=== PATIENT | female | born 2000 | race Caucasian/White ===

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

== ENCOUNTER 2021-04-20 16:59 | Emergency (ER) | payer BC ==
[~2021-04-20] VITALS: Ht 170 cm; Wt 58.9 kg
--- NOTE | 2021-04-20 17:16 | ED Lower Extremity ---
General Chief Complaint: Lower Extremity Stated Complaint: L LEG SWOLLEN, COLD, NUMB Source: patient Exam Limitations: no limitations History of Present Illness Date Seen by Provider: Apr 20, 2021 Time Seen by Provider: 17:12 Initial Comments To ER with left lower extremity cold and numb sensation. She noticed this upon awakening at noon today. She notices this in her left foot. She has no history of this and does not recall any injury. She states that she did drink some alcohol last night and might have fallen and injured herself but she does not remember it and has no pain or bruising. She is on oral control. She does not smoke but she does vape marijuana daily. Onset: this afternoon Severity: moderate Pain/Injury Location: left leg Method of Injury: unknown Modifying Factors: Worse With Movement Allergies and Home Medications Allergies Coded Allergies: azithromycin (Verified Adverse Reaction, Mild, RASH, 09/15/11) cefuroxime axetil (Verified Adverse Reaction, Mild, VOMITING, 09/15/11) Uncoded Allergies: MANGOS (Adverse Reaction, Mild, RASH, 09/15/11) Patient Home Medication List Home Medication List Reviewed: Yes Prednisone (Prednisone) 20 Mg Tab, 40 MG PO DAILY Prescribed by: MALCOM ESCALONA on 04/20/21 1833 [Qvar Inhaler] , 2 PUFF IH BID, (Reported) Entered as Reported by: MASON STERN on 09/16/11 0124 Review of Systems Constitutional: see HPI EENTM: see HPI Respiratory: no symptoms reported Cardiovascular: no symptoms reported Genitourinary: no symptoms reported Musculoskeletal: no symptoms reported Skin: no symptoms reported Psychiatric/Neurological: No Symptoms Reported Past Mtnumsy-Rwsife-Gpehxf Hx Past Medical History Surgeries: Yes (TONSILECTOMY) Appendectomy, Bladder Surgery Respiratory: Yes Cardiac: No Neurological: No Reproductive Disorders: No Genitourinary: No Gastrointestinal: No Musculoskeletal: No Endocrine: No Cancer: No Psychosocial: Yes Anxiety, Depression Blood Disorders: No Physical Exam Vital Signs Vital Signs - First Documented 04/20/21 17:09 Temp 36.3 Pulse 102 Resp 16 B/P (MAP) 158/69 (98) Pulse Ox 97 O2 Delivery Room Air Capillary Refill : Height, Weight, BMI Height: '" Weight: lbs. oz. kg; 20.00 BMI Method:Stated General Appearance: WD/WN, no apparent distress Neck: non-tender, full range of motion Respiratory: no respiratory distress, no accessory muscle use Hips: bilateral hip non-tender, bilateral hip normal inspection, bilateral hip normal range of motion Legs: bilateral leg non-tender, bilateral leg normal inspection, bilateral leg normal range of motion Knees: bilateral knee non-tender, bilateral knee normal inspection, bilateral knee normal range of motion Ankles: bilateral ankle normal inspection, bilateral ankle normal range of motion Feet: bilateral foot normal inspection, bilateral foot normal range of motion Neurologic/Psychiatric: alert, normal mood/affect, oriented x 3 Skin: normal color, warm/dry 1715-her pain is minimal. There is a notable temperature difference upon palpation of lower extremities that starts at the knee and extends distally. The legs are normal in appearance without either 1 appearing swollen. There is no ecchymoses or erythema or evidence of injury. She states that her only pain is left foot. She does report reduced motor function of the left lower extremity. She does have dopplerable blood flow in the dorsalis pedis and posterior tibial arteries. Progress/Results/Core Measures Results/Orders Lab Results Laboratory Tests Test 04/20/21 17:12 Range/Units White Blood Count 6.0 4.3-11.0 10^3/uL Red Blood Count 4.63 3.80-5.11 10^6/uL Hemoglobin 13.4 11.5-16.0 g/dL Hematocrit 41 35-52 % Mean Corpuscular Volume 88 80-99 fL Mean Corpuscular Hemoglobin 29 25-34 pg Mean Corpuscular Hemoglobin Concent 33 32-36 g/dL Red Cell Distribution Width 13.6 10.0-14.5 % Platelet Count 272 130-400 10^3/uL Mean Platelet Volume 12.5 H 9.0-12.2 fL Immature Granulocyte % (Auto) 0 % Neutrophils (%) (Auto) 59 42-75 % Lymphocytes (%) (Auto) 32 12-44 % Monocytes (%) (Auto) 7 0-12 % Eosinophils (%) (Auto) 1 0-10 % Basophils (%) (Auto) 1 0-10 % Neutrophils # (Auto) 3.6 1.8-7.8 10^3/uL Lymphocytes # (Auto) 1.9 1.0-4.0 10^3/uL Monocytes # (Auto) 0.4 0.0-1.0 10^3/uL Eosinophils # (Auto) 0.1 0.0-0.3 10^3/uL Basophils # (Auto) 0.0 0.0-0.1 10^3/uL Immature Granulocyte # (Auto) 0.0 0.0-0.1 10^3/uL Prothrombin Time 13.9 12.2-14.7 SEC INR Comment 1.0 0.8-1.4 Activated Partial Thromboplast Time 30 24-35 SEC D-Dimer 1.16 H 0.00-0.49 UG/ML Sodium Level 136 135-145 MMOL/L Potassium Level 4.2 3.6-5.0 MMOL/L Chloride Level 103 98-107 MMOL/L Carbon Dioxide Level 24 21-32 MMOL/L Anion Gap 9 5-14 MMOL/L Blood Urea Nitrogen 8 7-18 MG/DL Creatinine 1.24 0.60-1.30 MG/DL Estimat Glomerular Filtration Rate 63 BUN/Creatinine Ratio 6 Glucose Level 97 70-105 MG/DL Calcium Level 9.0 8.5-10.1 MG/DL Serum Test, Qualitative NEGATIVE NEGATIVE My Orders Orders - MALCOM ESCALONA APRN Us Venous Lower Ext Lt (04/20/21 17:03) Us Left Low Ext Arterial 24005 (04/20/21 17:03) Cbc With Automated Diff (04/20/21 17:05) Hcg,Qualitative Serum (04/20/21 17:05) Basic Metabolic Panel (04/20/21 17:05) Protime With Inr (04/20/21 17:16) Partial Thromboplastin Time (04/20/21 17:16) Fibrin Degradation Products (04/20/21 17:16) Vital Signs/I&O 04/20/21 17:09 Temp 36.3 Pulse 102 Resp 16 B/P (MAP) 158/69 (98) Pulse Ox 97 O2 Delivery Room Air Diagnostic Imaging Diagonstic Imaging: Ultrasound Comments NAME: JER RANDALL MED REC#: [id number] PT STATUS: REG ER : 2000 PHYSICIAN: MALCOM ESCALONA APRN ADMIT DATE: 04/20/21/ER Draft Date of Exam:04/20/21 US VENOUS LOWER EXT LT EXAM: US venous lower ext lt INDICATION: Swelling, cold, numb left lower extremity. COMPARISON: None. TECHNIQUE: Duplex, friedman-scale and color-flow imaging of the left lower extremity venous system was performed FINDINGS: The left common femoral vein, superficial femoral vein, profunda femoris and popliteal veins are normal. These vessels show normal compressibility, color flow and Doppler augmentation. The deep calf veins demonstrate no distinct intraluminal thrombus where seen. IMPRESSION: No evidence of deep venous thrombosis in the left lower extremity. Dictated on workstation # [id number] Dict: 04/20/211822 Trans: 04/20/211824 [facility] [phone] Interpreted by: REGINA LONG MD Electronically signed by: NAME: JER RANDALL [facility] REC#: [id number] PT STATUS: REG ER : 2000 PHYSICIAN: MALCOM ESCALONA APRN ADMIT DATE: 04/20/21/ER Draft Date of Exam:04/20/21 US LEFT LOW EXT ARTERIAL [id number] EXAM: US left low ext arterial [id number] INDICATION: Swelling, cold and numb left lower extremity. COMPARISON: None. FINDINGS: Normal peak systolic velocities and triphasic waveforms throughout the left lower extremity arteries. No arterial occlusion. No high-grade stenosis. IMPRESSION: Normal left lower extremity arterial Doppler. No stenosis or occlusion. Dictated on workstation # [id number] Dict: 04/20/211823 Trans: 04/20/211825 [facility] [phone] Interpreted by: REGINA LONG MD Electronically signed by: Departure Communication (Admissions) 1824-Ultrasound of the venous and arterial structures are patent with good triphasic flow in the arteries. I suspect this is a common peroneal nerve palsy. She states that she drank alcohol last night and awakened at noon with these symptoms. Would suspect a common peroneal nerve palsy from inadvertent compression overnight from sleepint position. She has the most pronounced loss of sensation starting at the proximal third of the tibia laterally and symptoms become increasingly pronounced more distally. She is able to dorsiflex and plantar flex the great toe and the foot though she has significantly reduced strength in doing so against resistance she has normal deep tendon reflexes at the patella bilaterally.. Impression Primary Impression: Left peroneal nerve palsy Disposition: HOME, SELF-CARE Condition: Stable Departure-Patient Inst. Decision time for Depature: 18:30 Referrals: UNIQUE CAMERON MD (PCP/Family) Primary Care Physician KALEY WARREN MD Patient Instructions: NO INSTRUCTIONS GIVEN Add. Discharge Instructions: 1. Call Dr. Warren from orthopedics on Friday morning to make an appointment to be seen next week. Take the steroids as directed. Return to ER for any concerns. All discharge instructions reviewed with patient and/or family. Voiced understanding. Scripts Prednisone (Prednisone) 20 Mg Tab 40 MG PO DAILY, #8 TAB 0 Refills Prov: MALCOM ESCALONA APRN 04/20/21 Copy Copies To 1: UNIQUE CAMERON MD; KALEY WARREN MD, PETER J APRN Apr 20, 2021 17:16
[2021-04-20 17:19] LABS: BASOPHILS % (AUTO) 1 % (0-10); EOSINOPHILS # (AUTO) 0.1 10^3/uL (0.0-0.3); EOSINOPHILS % (AUTO) 1 % (0-10); HEMATOCRIT 41 % (35-52); HEMOGLOBIN 13.4 g/dL (11.5-16.0); LYMPHOCYTES # (AUTO) 1.9 10^3/uL (1.0-4.0); LYMPHOCYTES % (AUTO) 32 % (12-44); MEAN CORPUSCULAR HEMOGLOBIN 29 pg (25-34); MEAN CORPUSCULAR HGB CONC 33 g/dL (32-36); MEAN CORPUSCULAR VOLUME 88 fL (80-99); MEAN PLATELET VOLUME 12.5 fL (9.0-12.2); MONOCYTES # (AUTO) 0.4 10^3/uL (0.0-1.0); MONOCYTES % (AUTO) 7 % (0-12); NEUTROPHILS # (AUTO) 3.6 10^3/uL (1.8-7.8); NEUTROPHILS % (AUTO) 59 % (42-75); PLATELET COUNT 272 10^3/uL (130-400)
[2021-04-20 17:32] LABS: POTASSIUM 4.2 MMOL/L (3.6-5.0)
[2021-04-20 17:34] LABS: FIBRIN DEGRADATION PRODUCTS 1.16 UG/ML (0.00-0.49); PROTHROMBIN TIME PATIENT 13.9 SEC (12.2-14.7)
[2021-04-20 17:38] LABS: CREATININE SERUM 1.24 MG/DL (0.60-1.30)
--- NOTE | 2021-04-20 18:25 | Diagnostic Imaging Report ---
EXAM: US venous lower ext lt INDICATION: Swelling, cold, numb left lower extremity. COMPARISON: None. TECHNIQUE: Duplex, friedman-scale and color-flow imaging of the left lower extremity venous system was performed FINDINGS: The left common femoral vein, superficial femoral vein, profunda femoris and popliteal veins are normal. These vessels show normal compressibility, color flow and Doppler augmentation. The deep calf veins demonstrate no distinct intraluminal thrombus where seen. IMPRESSION: No evidence of deep venous thrombosis in the left lower extremity. Dictated by: Dictated on workstation # [id number]
--- NOTE | 2021-04-20 18:26 | Diagnostic Imaging Report ---
EXAM: US left low ext arterial [id number] INDICATION: Swelling, cold and numb left lower extremity. COMPARISON: None. FINDINGS: Normal peak systolic velocities and triphasic waveforms throughout the left lower extremity arteries. No arterial occlusion. No high-grade stenosis. IMPRESSION: Normal left lower extremity arterial Doppler. No stenosis or occlusion. Dictated by: Dictated on workstation # [id number]
[2021-04-20] MEDS ORDERED: PRD20T PO (18:33)
[2021-04-20 19:09] VITALS: BP 135/94
== END 2021-04-20 19:09 ==
LOC: EDUNIT# 16:59 → ER 17:03
DX: G57.32 Lesion of lateral popliteal nerve, left lower limb (principal)
CPT/HCPCS: 36415; 80048; 84703; 85025; 85379; 85610; 85730; 93926

== ENCOUNTER 2021-06-15 19:03 | Emergency (ER) | payer BC ==
[~2021-06-15] VITALS: Ht 170 cm; Wt 135.0 kg
[~2021-06-15 19:03] MED LIST changes: +PRD20T PO
[2021-06-15 19:15] VITALS: BP 160/108
[2021-06-15] MEDS ORDERED: ONDANSETRON 4 MG/2 ML (SDV) Z0FRAN IVP ONE (19:30)
[2021-06-15] MEDS ORDERED: PROMETHAZINE INJ 25 MG/ML (PHENERGAN) AMP IVP ONE (19:30)
[2021-06-15] MEDS ORDERED: NS IV 1000 ML 1,000 ML IV SCH (19:30)
--- NOTE | 2021-06-15 19:30 | ED GI ---
General Chief Complaint: Abdominal/GI Problems Stated Complaint: POSS ALCOHOL POISONING Nursing Triage Note: PT ARRIVES PER POV W/ C/O NAUSEA AND VOMITING AFTER DRINKING HEAVILY LAST NIGHT. AMBULATORY TO ROOM, VS OBTAINED AND RN NEUROSURGICAL TO ROOM. Source of Information: Patient Exam Limitations: No Limitations (MALCOM ESCALONA APRN) History of Present Illness Date Seen by Provider: Jun 15, 2021 Time Seen by Provider: 19:28 Initial Comments to ER by private vehicle accompanied by boyfriend with reports of nausea and vomiting after drinking heavily last night. She has been unable to take anything p.o. Only 1 episode of diarrhea at home. No fevers chills. Timing/Duration: 12-24 Hours Severity/Quality: Moderate Location: Generalized Abdomen Radiation: No Radiation Activities at Onset: None Associated Symptoms: Nausea/Vomiting (MALCOM ESCALONA APRN) Allergies and Home Medications Allergies Coded Allergies: azithromycin (Verified Adverse Reaction, Mild, RASH, 09/15/11) cefuroxime axetil (Verified Adverse Reaction, Mild, VOMITING, 09/15/11) Uncoded Allergies: MANGOS (Adverse Reaction, Mild, RASH, 09/15/11) Patient Home Medication List Home Medication List Reviewed: Yes (MALCOM ESCALONA APRN) Prednisone (Prednisone) 20 Mg Tab, 40 MG PO DAILY Prescribed by: MALCOM ESCALONA on 04/20/21 1833 [Qvar Inhaler] , 2 PUFF IH BID, (Reported) Entered as Reported by: MASON STERN on 09/16/11 0124 Review of Systems Review of Systems Constitutional: see HPI EENTM: No Symptoms Reported Respiratory: No Symptoms Reported Cardiovascular: No Symptoms Reported Gastrointestinal: See HPI, Abdominal Pain, Nausea, Vomiting Genitourinary: No Symptoms Reported Musculoskeletal: no symptoms reported Skin: no symptoms reported Psychiatric/Neurological: No Symptoms Reported Endocrine: No Symptoms Reported (MALCOM ESCALONA APRN) Past Zhekyhn-Mzlqha-Byeubk Hx Past Medical History Surgeries: Yes (TONSILECTOMY) Appendectomy, Bladder Surgery Respiratory: Yes Cardiac: No Neurological: No Reproductive Disorders: No Genitourinary: No Gastrointestinal: No Musculoskeletal: No Endocrine: No Cancer: No Psychosocial: Yes Anxiety, Depression Blood Disorders: No (MALCOM ESCALONA APRN) Physical Exam Vital Signs Vital Signs - First Documented 06/15/21 19:15 Temp 36.0 Pulse 84 Resp 24 B/P (MAP) 160/108 (125) Pulse Ox 96 (MI,MASOUD K DO) Vital Signs Capillary Refill : Less Than 3 Seconds (MALCOM ESCALONA APRN) Height/Weight/BMI Height: '" Weight: lbs. oz. kg; 46.00 BMI Method:Stated General Appearance: WD/WN, no apparent distress, other (Tachypnea, appears to feel unwell.) HEENT: PERRL/EOMI, normal ENT inspection Neck: non-tender, full range of motion Respiratory: no respiratory distress, no accessory muscle use Cardiovascular: no murmur, tachycardia Gastrointestinal: normal bowel sounds, soft, tenderness (Epigastric) Extremities: normal range of motion, non-tender, other (Full range of motion all extremities) Neurologic/Psychiatric: alert, normal mood/affect, oriented x 3 Skin: normal color, warm/dry (MALCOM ESCAOLNA APRN) Progress/Results/Core Measures Results/Orders Lab Results Laboratory Tests Test 06/15/21 19:20 06/15/21 20:15 06/15/21 20:30 Range/Units White Blood Count 15.6 H 4.3-11.0 10^3/uL Red Blood Count 4.96 3.80-5.11 10^6/uL Hemoglobin 14.6 11.5-16.0 g/dL Hematocrit 43 35-52 % Mean Corpuscular Volume 87 80-99 fL Mean Corpuscular Hemoglobin 29 25-34 pg Mean Corpuscular Hemoglobin Concent 34 32-36 g/dL Red Cell Distribution Width 12.8 10.0-14.5 % Platelet Count 263 130-400 10^3/uL Mean Platelet Volume 12.6 H 9.0-12.2 fL Immature Granulocyte % (Auto) 0 % Neutrophils (%) (Auto) 93 H 42-75 % Lymphocytes (%) (Auto) 4 L 12-44 % Monocytes (%) (Auto) 3 0-12 % Eosinophils (%) (Auto) 0 0-10 % Basophils (%) (Auto) 0 0-10 % Neutrophils # (Auto) 14.4 H 1.8-7.8 10^3/uL Lymphocytes # (Auto) 0.6 L 1.0-4.0 10^3/uL Monocytes # (Auto) 0.5 0.0-1.0 10^3/uL Eosinophils # (Auto) 0.0 0.0-0.3 10^3/uL Basophils # (Auto) 0.0 0.0-0.1 10^3/uL Immature Granulocyte # (Auto) 0.1 0.0-0.1 10^3/uL Neutrophils % (Manual) 93 % Lymphocytes % (Manual) 5 % Monocytes % (Manual) 1 % Band Neutrophils 1 % Blood Morphology Comment NORMAL Sodium Level 135 135-145 MMOL/L Potassium Level 4.2 3.6-5.0 MMOL/L Chloride Level 103 98-107 MMOL/L Carbon Dioxide Level 13 L 21-32 MMOL/L Anion Gap 19 H 5-14 MMOL/L Blood Urea Nitrogen 13 7-18 MG/DL Creatinine 1.01 0.60-1.30 MG/DL Estimat Glomerular Filtration Rate 81 BUN/Creatinine Ratio 13 Glucose Level 178 H 70-105 MG/DL Calcium Level 10.2 H 8.5-10.1 MG/DL Corrected Calcium 8.5-10.1 MG/DL Total Bilirubin 0.6 0.1-1.0 MG/DL Aspartate Amino Transf (AST/SGOT) 24 5-34 U/L Alanine Aminotransferase (ALT/SGPT) 25 0-55 U/L Alkaline Phosphatase 50 40-136 U/L Total Protein 8.0 6.4-8.2 GM/DL Albumin 4.7 H 3.2-4.5 GM/DL Lipase 11 8-78 U/L Serum Alcohol < 10 <10 MG/DL Urine Color YELLOW Urine Clarity CLEAR Urine pH 6.0 5-9 Urine Specific [place] >=1.030 1.016-1.022 Urine Protein 2+ H NEGATIVE Urine Glucose (UA) 3+ H NEGATIVE Urine Ketones 1+ H NEGATIVE Urine Nitrite NEGATIVE NEGATIVE Urine Bilirubin NEGATIVE NEGATIVE Urine Urobilinogen 0.2 < = 1.0 MG/DL Urine Leukocyte Esterase NEGATIVE NEGATIVE Urine RBC (Auto) 3+ H NEGATIVE Urine RBC 2-5 H /HPF Urine WBC 0-2 /HPF Urine Squamous Epithelial Cells 2-5 /HPF Urine Crystals NONE /LPF Urine Bacteria FEW H /HPF Urine Casts NONE /LPF Urine Mucus NEGATIVE /LPF Urine Culture Indicated YES Blood Gas Puncture Site UNKNOWN Blood Gas Patient Temperature 36 Arterial Blood pH 7.35 L 7.37-7.43 Arterial Blood Partial Pressure CO2 28 L 35-45 MMHG Arterial Blood Partial Pressure O2 86 79-93 MMHG Arterial Blood HCO3 15 *L 23-27 MMOL/L Arterial Blood Total CO2 16.0 L 21.0-31.0 MMOL/L Arterial Blood Oxygen Saturation 96 94-100 % Arterial Blood Base Excess -9.6 L -2.5-2.5 MMOL/L Kerwin Test UNKNOWN Blood Gas Ventilator Setting NO Blood Gas Inspired Oxygen UNKNOWN (MASOUD STARK DO) Medications Given in ED Current Medications Medications Dose Ordered Sig/Xu Route Start Time Stop Time Status Last Admin Dose Admin Ondansetron HCl 8 mg ONCE ONCE IVP 06/15/21 19:30 06/15/21 19:31 DC 06/15/21 19:37 8 MG Promethazine HCl 25 mg ONCE ONCE IVP 06/15/21 19:30 06/15/21 19:31 DC 06/15/21 19:37 25 MG (JAY STARKA Ta GONZALEZ) Vital Signs/I&O 06/15/21 19:15 Temp 36.0 Pulse 84 Resp 24 B/P (MAP) 160/108 (125) Pulse Ox 96 (JAY STARKA Ta GONZALEZ) Blood Pressure Mean: 125 Departure Communication (Admissions) 2055-In regards to the left peroneal nerve palsy that I saw a few months ago she has full dorsiflexion and plantar flexion. She has had some pain but has complete functionality of the foot. Regards to her nausea, she states that she took a nap and now she woke up and "feels great". She is alert talkative pleasant and in no distress. I will give her a p.o. challenge and as long as she can tolerate this we will discharge to home. (MALCOM ESCALONA APRN) Impression Primary Impression: Nausea & vomiting Disposition: 01 HOME, SELF-CARE Condition: Stable Departure-Patient Inst. Decision time for Depature: 20:57 (MALCOM ESCALONA APRN) Referrals: UNIQUE CAMERON MD (PCP/Family) Primary Care Physician Patient Instructions: Nausea and Vomiting, Adult (DC) Add. Discharge Instructions: 1. Return to ER for any concerns. Use the nausea medication as directed. All discharge instructions reviewed with patient and/or family. Voiced understanding. ATTENDING PHYSICIAN NOTE: I WAS PHYSICALLY PRESENT ER PHYSICIAN, BUT I WAS NOT INVOLVED IN ANY DECISION MAKING OR ANY CARE OF THIS PATIENT. (MASOUD STARK DO) MALCOM ESCALONA INSTRUMENT LENS INSPECTOR Jun 15, 2021 19:30 MASOUD STARK DO Jun 15, 2021 21:33
[2021-06-15 19:31] LABS: BASOPHILS % (AUTO) 0 % (0-10); EOSINOPHILS % (AUTO) 0 % (0-10); HEMATOCRIT 43 % (35-52); HEMOGLOBIN 14.6 g/dL (11.5-16.0); LYMPHOCYTES # (AUTO) 0.6 10^3/uL (1.0-4.0); LYMPHOCYTES % (AUTO) 4 % (12-44); MEAN CORPUSCULAR HEMOGLOBIN 29 pg (25-34); MEAN CORPUSCULAR HGB CONC 34 g/dL (32-36); MEAN CORPUSCULAR VOLUME 87 fL (80-99); MEAN PLATELET VOLUME 12.6 fL (9.0-12.2); MONOCYTES # (AUTO) 0.5 10^3/uL (0.0-1.0); MONOCYTES % (AUTO) 3 % (0-12); NEUTROPHILS # (AUTO) 14.4 10^3/uL (1.8-7.8); NEUTROPHILS % (AUTO) 93 % (42-75); PLATELET COUNT 263 10^3/uL (130-400); WHITE BLOOD COUNT 15.6 10^3/uL (4.3-11.0)
[2021-06-15] MEDS ORDERED: ONDANSETRON 4 MG/2 ML (SDV) Z0FRAN ONE (19:35)
[2021-06-15 19:57] LABS: ALANINE AMINOTRANSFERASE 25 U/L (0-55); ALBUMIN 4.7 GM/DL (3.2-4.5); ALKALINE PHOSPHATASE 50 U/L (40-136); BILIRUBIN,TOTAL 0.6 MG/DL (0.1-1.0); BUN/CREATININE RATIO 13; CALCIUM 10.2 MG/DL (8.5-10.1); CARBON DIOXIDE 13 MMOL/L (21-32); CHLORIDE 103 MMOL/L (98-107); CREATININE SERUM 1.01 MG/DL (0.60-1.30); GFR ESTIMATED 81; GLUCOSE 178 MG/DL (70-105); LIPASE 11 U/L (8-78); POTASSIUM 4.2 MMOL/L (3.6-5.0); SODIUM 135 MMOL/L (135-145)
[2021-06-15 20:24] LABS: BILIRUBIN,URINE NEGATIVE (NEGATIVE); CLARITY,URINE CLEAR; COLOR,URINE YELLOW; GLUCOSE, URINE (UA) 3+ (NEGATIVE); KETONES,URINE 1+ (NEGATIVE); LEUKOCYTE ESTERASE ,URINE NEGATIVE (NEGATIVE); NITRITE,URINE NEGATIVE (NEGATIVE); PROTEIN,URINE 2+ (NEGATIVE)
[2021-06-15 20:34] LABS: ABG BASE EXCESS -9.6 MMOL/L (-2.5-2.5); ABG OXYGEN SATURATION 96 % (94-100); ABG PCO2 28 MMHG (35-45); ABG PH 7.35 (7.37-7.43); ABG PO2 86 MMHG (79-93)
[2021-06-15 20:36] LABS: PATIENT TEMP 36; VENTILATOR NO
[2021-06-15 20:38] LABS: BACTERIA,URINE FEW /HPF; WBC,URINE 0-2 /HPF
[2021-06-15 20:42] LABS: BAND NEUTROPHILS 1 %; LYMPHOCYTES % (MANUAL) 5 %; MONOCYTES % (MANUAL) 1 %; NEUTROPHILS % (MANUAL) 93 %; RBC MORPH NORMAL
[2021-06-15] MEDS ORDERED: RX-ONDANSETRON 4 MG ODT (ZOFRAN) PPK #4 PO STA (20:54)
[2021-06-15] MEDS ORDERED: LACTATED RINGERS 1,000 ML IV SCH (21:00)
== END 2021-06-15 21:12 | disposition home or self-care (01) ==
LOC: EDUNIT# 19:03 → ER 19:05
DX: R11.2 Nausea with vomiting, unspecified (principal); Z87.898 Personal history of other specified conditions
CPT/HCPCS: 80053; 81000; 82805; 83690; 85007; 85027; 87088; 99284; G0480; 36415; 80320

== ENCOUNTER 2021-12-20 16:02 | Emergency (ER) | payer BC ==
[~2021-12-20] VITALS: Ht 170 cm; Wt 56.0 kg
--- NOTE | 2021-12-20 16:19 | ED General ---
General Chief Complaint: General Problems/Pain Stated Complaint: VOMITING,ABD CRAMPS,FEVER,SOA Nursing Triage Note: ARRIVED VIA AMB TO ROOM 10 WITH COMPLAINTS, VOMITING, FEVER, SOA, COUGH, HANDS TINGLING STARTING YESTERDAY. STATES SHE WAS SEEN BY [facility] YESTERDAY WHO TOLD HER SHE HAD A STOMACH BUG. History of Present Illness Date Seen by Provider: Dec 20, 2021 Time Seen by Provider: 16:15 Initial Comments Patient comes to the emergency department for continued nausea, vomiting and fever that started yesterday. Was seen at [facility] yesterday and told that she had a stomach bug. Denies recent sick contacts that she is aware of. Denies exposure to COVID. Reports that she has been unable to keep much down and decreased urination. Timing/Duration: 1-2 Days Severity: Moderate Modifying Factors: improves with Rest Associated Systoms: No Chest Pain, No Cough, No Diaphoresis; Fever/Chills, Loss of Appetite, Malaise, Nausea/Vomiting, Shortness of Air; No Syncope, No Weakness Allergies and Home Medications Allergies Coded Allergies: azithromycin (Verified Adverse Reaction, Mild, RASH, 09/15/11) cefuroxime axetil (Verified Adverse Reaction, Mild, VOMITING, 09/15/11) Uncoded Allergies: MANGOS (Adverse Reaction, Mild, RASH, 09/15/11) Patient Home Medication List Home Medication List Reviewed: Yes Ondansetron (Ondansetron Odt) 4 Mg Tab.rapdis, 4 MG PO Q6H PRN for NAUSEA/VOMITING Prescribed by: Trina Mann on 12/20/21 1735 Prednisone (Prednisone) 20 Mg Tab, 40 MG PO DAILY Prescribed by: MALCOM ESCALONA on 04/20/21 1833 [Qvar Inhaler] , 2 PUFF IH BID, (Reported) Entered as Reported by: MASON STERN on 09/16/11 0124 Review of Systems Review of Systems Constitutional: No chills, No diaphoresis; dizziness, fever, malaise; No weakness EENTM: no symptoms reported Respiratory: No cough; short of breath; No stridor, No wheezing Cardiovascular: No chest pain, No palpitations Gastrointestinal: abdominal pain; No constipation; diarrhea, nausea, vomiting Genitourinary: No dysuria, No frequency Musculoskeletal: no symptoms reported Skin: no symptoms reported Psychiatric/Neurological: No Symptoms Reported All Other Systems Reviewed Negative Unless Noted: Yes Past Wfuvtmv-Fbugxi-Ivokpy Hx Patient Social History Substance use?: Yes Substance type: Marijuana Alcohol Use?: Yes Alcohol Frequency: Once in a while Past Medical History Surgeries: Yes (TONSILECTOMY) Appendectomy, Bladder Surgery Respiratory: Yes Cardiac: No Neurological: No Last Menstrual Period: Dec 10, 2021 Reproductive Disorders: No Genitourinary: No Gastrointestinal: No Musculoskeletal: No Endocrine: No Cancer: No Psychosocial: Yes Anxiety, Depression Blood Disorders: No Family Medical History Reviewed Nursing Family Hx Physical Exam Vital Signs Vital Signs - First Documented 12/20/21 16:10 Temp 36.4 Pulse 68 Resp 16 B/P (MAP) 153/96 (115) Pulse Ox 100 O2 Delivery Room Air Capillary Refill : Less Than 3 Seconds Height, Weight, BMI Height: '" Weight: lbs. oz. kg; 19.00 BMI Method:Stated General Appearance: No Apparent Distress, WD/WN Neck: Full Range of Motion, Normal Inspection, Non Tender, Supple Respiratory: Chest Non Tender, Lungs Clear, Normal Breath Sounds, No Accessory Muscle Use, No Respiratory Distress Cardiovascular: Regular Rate, Rhythm, No Edema Gastrointestinal: Normal Bowel Sounds, Tenderness (epigastric) Extremity: Normal Capillary Refill, Normal Inspection, Normal Range of Motion, Non Tender, No Calf Tenderness Neurologic/Psychiatric: Alert, Oriented x3, No Motor/Sensory Deficits Skin: Normal Color, Warm/Dry Progress/Results/Core Measures Suspected Sepsis SIRS Temperature: Pulse: 68 Respiratory Rate: 16 Laboratory Tests 12/20/21 16:20: White Blood Count 15.6H Blood Pressure 153 /96 Mean: 115 Laboratory Tests 12/20/21 16:20: Creatinine 1.24, Platelet Count 294, Total Bilirubin 1.0 Results/Orders Lab Results Laboratory Tests Test 12/20/21 16:20 Range/Units White Blood Count 15.6 H 4.3-11.0 10^3/uL Red Blood Count 4.95 3.80-5.11 10^6/uL Hemoglobin 14.5 11.5-16.0 g/dL Hematocrit 42 35-52 % Mean Corpuscular Volume 84 80-99 fL Mean Corpuscular Hemoglobin 29 25-34 pg Mean Corpuscular Hemoglobin Concent 35 32-36 g/dL Red Cell Distribution Width 12.3 10.0-14.5 % Platelet Count 294 130-400 10^3/uL Mean Platelet Volume 12.8 H 9.0-12.2 fL Immature Granulocyte % (Auto) 1 % Neutrophils (%) (Auto) 87 H 42-75 % Lymphocytes (%) (Auto) 7 L 12-44 % Monocytes (%) (Auto) 6 0-12 % Eosinophils (%) (Auto) 0 0-10 % Basophils (%) (Auto) 0 0-10 % Neutrophils # (Auto) 13.6 H 1.8-7.8 10^3/uL Lymphocytes # (Auto) 1.1 1.0-4.0 10^3/uL Monocytes # (Auto) 0.9 0.0-1.0 10^3/uL Eosinophils # (Auto) 0.0 0.0-0.3 10^3/uL Basophils # (Auto) 0.0 0.0-0.1 10^3/uL Immature Granulocyte # (Auto) 0.1 0.0-0.1 10^3/uL Neutrophils % (Manual) 92 % Lymphocytes % (Manual) 7 % Monocytes % (Manual) 1 % Eosinophils % (Manual) 0 % Basophils % (Manual) 0 % Band Neutrophils 0 % Blood Morphology Comment NORMAL Urine Color YELLOW Urine Clarity CLEAR Urine pH 6.0 5-9 Urine Specific [place] <=1.005 1.016-1.022 Urine Protein NEGATIVE NEGATIVE Urine Glucose (UA) NEGATIVE NEGATIVE Urine Ketones TRACE H NEGATIVE Urine Nitrite NEGATIVE NEGATIVE Urine Bilirubin NEGATIVE NEGATIVE Urine Urobilinogen 0.2 < = 1.0 MG/DL Urine Leukocyte Esterase NEGATIVE NEGATIVE Urine RBC (Auto) 1+ H NEGATIVE Urine RBC NONE /HPF Urine WBC NONE /HPF Urine Squamous Epithelial Cells 0-2 /HPF Urine Crystals NONE /LPF Urine Bacteria NEGATIVE /HPF Urine Casts NONE /LPF Urine Mucus NEGATIVE /LPF Urine Culture Indicated NO Urine Test NEGATIVE NEGATIVE Sodium Level 138 135-145 MMOL/L Potassium Level 3.3 L 3.6-5.0 MMOL/L Chloride Level 104 98-107 MMOL/L Carbon Dioxide Level 21 21-32 MMOL/L Anion Gap 13 5-14 MMOL/L Blood Urea Nitrogen 13 7-18 MG/DL Creatinine 1.24 0.60-1.30 MG/DL Estimat Glomerular Filtration Rate 63 BUN/Creatinine Ratio 10 Glucose Level 114 H 70-105 MG/DL Calcium Level 10.1 8.5-10.1 MG/DL Corrected Calcium 9.7 8.5-10.1 MG/DL Total Bilirubin 1.0 0.1-1.0 MG/DL Aspartate Amino Transf (AST/SGOT) 24 5-34 U/L Alanine Aminotransferase (ALT/SGPT) 12 0-55 U/L Alkaline Phosphatase 53 40-136 U/L Total Protein 7.9 6.4-8.2 GM/DL Albumin 4.5 3.2-4.5 GM/DL Lipase 11 8-78 U/L My Orders Orders - TRINA MANN APRN Cbc With Automated Diff (12/20/21 16:19) Comprehensive Metabolic Panel (12/20/21 16:19) Lipase (12/20/21 16:19) Ua Culture If Indicated (12/20/21 16:19) Ns Iv 1000 Ml (Sodium Chloride 0.9%) (12/20/21 16:30) Ondansetron Injection (Zofran Injectio (12/20/21 16:30) Chest 1 View, Ap/Pa Only (12/20/21 16:34) Hcg,Qualitative Urine (12/20/21 16:34) Manual Differential (12/20/21 16:20) Medications Given in ED Current Medications Medications Dose Ordered Sig/Xu Route Start Time Stop Time Status Last Admin Dose Admin Ondansetron HCl 4 mg ONCE ONCE IVP 12/20/21 16:30 12/20/21 16:31 DC 12/20/21 16:31 4 MG Vital Signs/I&O 12/20/21 16:10 Temp 36.4 Pulse 68 Resp 16 B/P (MAP) 153/96 (115) Pulse Ox 100 O2 Delivery Room Air Capillary Refill : Less Than 3 Seconds Blood Pressure Mean: 115 Progress Note : Progress Note WBC is slightly elevated. Likely secondary to vomiting. CXR was negative and electrolytes look good overall. Slightly low potassium. Discussed with patient labs in addition along with reasons to return to the ER. Diagnostic Imaging Diagonstic Imaging: Xray Plain Films/CT/US/NM/MRI: chest Comments NAME: JER RANDALL [facility] REC#: [id number] PT STATUS: REG ER : 2000 PHYSICIAN: TRINA MANN APRN ADMIT DATE: 12/20/21/ER Draft Date of Exam:12/20/21 CHEST 1 VIEW, AP/PA ONLY INDICATION: Shortness of breath. EXAMINATION: Frontal chest was obtained at 4:55 p.m. COMPARISON: 02/10/2013. Heart and mediastinal silhouette are normal in appearance. The lungs are clear. There is no pneumothorax or pleural fluid. IMPRESSION: Negative chest. Dictated on workstation # [id number] Dict: 12/20/211711 Trans: 12/20/211714 [facility] [id number] Interpreted by: TUCKER YEH MD Electronically signed by: Departure Impression Primary Impression: Gastroenteritis Disposition: 01 HOME, SELF-CARE Condition: Stable Departure-Patient Inst. Decision time for Depature: 17:34 Referrals: NO,LOCAL PHYSICIAN (PCP/Family) Primary Care Physician Patient Instructions: Viral Gastroenteritis in Adults Add. Discharge Instructions: 1. Home and rest. 2. Push fluids. 3. Alternate Tylenol/Ibuprofen as needed for pain. 4. May continue over the counter medications as directed per package instructions. 5. Follow up with PCP as needed. 6. [place] diet and advance as tolerated. 7. Zofran as needed for nausea. 8. Return here if worse or concerns. All discharge instructions reviewed with patient and/or family. Voiced understanding. Scripts Ondansetron (Ondansetron Odt) 4 Mg Tab.rapdis 4 MG PO Q6H PRN for NAUSEA/VOMITING, #8 TAB 0 Refills Prov: TIRNA MANN APRN 12/20/21 Work/School Note: Work Release Form Date Seen in the Emergency Department: Dec 20, 2021 Return to Work: Dec 24, 2021 Restrictions: No Restrictions TRINA MANN APRN Dec 20, 2021 16:19
[2021-12-20] MEDS ORDERED: ONDANSETRON 4 MG/2 ML (SDV) Z0FRAN IVP ONE (16:30)
[2021-12-20] MEDS ORDERED: NS IV 1000 ML 1,000 ML IV SCH (16:30)
[2021-12-20 16:33] LABS: BILIRUBIN,URINE NEGATIVE (NEGATIVE); CLARITY,URINE CLEAR; COLOR,URINE YELLOW; GLUCOSE, URINE (UA) NEGATIVE (NEGATIVE); KETONES,URINE TRACE (NEGATIVE); LEUKOCYTE ESTERASE ,URINE NEGATIVE (NEGATIVE); NITRITE,URINE NEGATIVE (NEGATIVE); PROTEIN,URINE NEGATIVE (NEGATIVE)
[2021-12-20 16:34] LABS: BASOPHILS % (AUTO) 0 % (0-10); EOSINOPHILS % (AUTO) 0 % (0-10); HEMATOCRIT 42 % (35-52); HEMOGLOBIN 14.5 g/dL (11.5-16.0); LYMPHOCYTES # (AUTO) 1.1 10^3/uL (1.0-4.0); LYMPHOCYTES % (AUTO) 7 % (12-44); MEAN CORPUSCULAR HEMOGLOBIN 29 pg (25-34); MEAN CORPUSCULAR HGB CONC 35 g/dL (32-36); MEAN CORPUSCULAR VOLUME 84 fL (80-99); MEAN PLATELET VOLUME 12.8 fL (9.0-12.2); MONOCYTES # (AUTO) 0.9 10^3/uL (0.0-1.0); MONOCYTES % (AUTO) 6 % (0-12); NEUTROPHILS # (AUTO) 13.6 10^3/uL (1.8-7.8); NEUTROPHILS % (AUTO) 87 % (42-75); PLATELET COUNT 294 10^3/uL (130-400); WHITE BLOOD COUNT 15.6 10^3/uL (4.3-11.0)
[2021-12-20 17:04] LABS: BACTERIA,URINE NEGATIVE /HPF; SQUAMOUS EPITHELIAL CELL,UR 0-2 /HPF
[2021-12-20 17:07] LABS: BAND NEUTROPHILS 0 %; BASOPHILS % (MANUAL) 0 %; EOSINOPHILS % (MANUAL) 0 %; LYMPHOCYTES % (MANUAL) 7 %; MONOCYTES % (MANUAL) 1 %; NEUTROPHILS % (MANUAL) 92 %; RBC MORPH NORMAL
[2021-12-20 17:14] LABS: ALBUMIN 4.5 GM/DL (3.2-4.5); POTASSIUM 3.3 MMOL/L (3.6-5.0)
[2021-12-20 17:15] LABS: CALCIUM 10.1 MG/DL (8.5-10.1)
--- NOTE | 2021-12-20 17:15 | Diagnostic Imaging Report ---
INDICATION: Shortness of breath. EXAMINATION: Frontal chest was obtained at 4:55 p.m. COMPARISON: 02/10/2013. Heart and mediastinal silhouette are normal in appearance. The lungs are clear. There is no pneumothorax or pleural fluid. IMPRESSION: Negative chest. Dictated by: Dictated on workstation # [id number]
[2021-12-20 17:17] LABS: TOTAL PROTEIN 7.9 GM/DL (6.4-8.2)
[2021-12-20 17:20] LABS: CREATININE SERUM 1.24 MG/DL (0.60-1.30)
[2021-12-20] MEDS ORDERED: ONDA4TAB11 PO (17:35)
[2021-12-20 17:48] VITALS: BP 152/102
== END 2021-12-20 17:48 | disposition home or self-care (01) ==
LOC: EDUNIT# 16:02 → ER 16:04
DX: K52.9 Noninfective gastroenteritis and colitis, unspecified (principal); E87.6 Hypokalemia; Z28.310 Unvaccinated for COVID-19
CPT/HCPCS: 36415; 71045; 80053; 81000; 83690; 84703; 85007; 85027